=== PATIENT | male | born 1935 | race Caucasian/White ===

== ENCOUNTER 2021-12-13 05:55 | Emergency (ER) | payer MEDICARE ==
[~2021-12-13] VITALS: Ht 182.9 cm; Wt 99.8 kg
[2021-12-13] MEDS ORDERED: Simvastatin20 MG PO (06:26)
[2021-12-13] MEDS ORDERED: TAMSULOSIN HCL0.4 M1 PO (06:26)
[2021-12-13] MEDS ORDERED: FAMO10 PO (06:27)
[2021-12-13] MEDS ORDERED: EUTHYROX75 MC1 PO (06:27)
[2021-12-13] MEDS ORDERED: Cortef20 MG PO (06:27)
[2021-12-13] MEDS ORDERED: Keppra750 MG PO (06:27)
[2021-12-13] MEDS ORDERED: ASPI81CH PO (06:28)
== END 2021-12-13 09:49 | disposition home or self-care (01) ==
LOC: ER 05:55
DX: M25.511 Pain in right shoulder (principal); E03.9 Hypothyroidism, unspecified; F03.90 Unspecified dementia, unspecified severity, without behavioral disturbance, psychotic disturbance, mood disturbance, and anxiety; Z88.5 Allergy status to narcotic agent; Z88.0 Allergy status to penicillin; Z79.899 Other long term (current) drug therapy; Z79.82 Long term (current) use of aspirin; W01.0XXA Fall on same level from slipping, tripping and stumbling without subsequent striking against object, initial encounter
CPT/HCPCS: 73030; A9270

== ENCOUNTER 2022-04-12 15:25 | Emergency (ER) | payer MEDICARE ==
[~2022-04-12] VITALS: Ht 185.4 cm; Wt 81.7 kg
[~2022-04-12 15:25] MED LIST: ASPI81CH PO; ATORVASTATIN CA20 MG PO; AZIT500 PO; Cortef20 MG PO; EUTHYROX75 MC1 PO; FAMO10 PO; Keppra750 MG PO; Simvastatin20 MG PO; TAMSULOSIN HCL0.4 M1 PO
== END 2022-04-12 19:34 | disposition home or self-care (01) ==
LOC: ER 15:25
DX: M25.551 Pain in right hip (principal); F03.90 Unspecified dementia, unspecified severity, without behavioral disturbance, psychotic disturbance, mood disturbance, and anxiety; E03.9 Hypothyroidism, unspecified; I10 Essential (primary) hypertension; E11.9 Type 2 diabetes mellitus without complications; Z79.4 Long term (current) use of insulin; Z98.890 Other specified postprocedural states; Z88.0 Allergy status to penicillin; Z88.5 Allergy status to narcotic agent; Z79.899 Other long term (current) drug therapy; Z79.82 Long term (current) use of aspirin
CPT/HCPCS: 73502

== ENCOUNTER 2022-04-17 13:54 | Emergency (ER) | payer MEDICARE ==
[~2022-04-17] VITALS: Ht 180.3 cm; Wt 109.8 kg
== END 2022-04-17 18:05 | disposition home or self-care (01) ==
LOC: ER 13:54
DX: S51.801A Unspecified open wound of right forearm, initial encounter (principal); I10 Essential (primary) hypertension; E11.9 Type 2 diabetes mellitus without complications; E78.00 Pure hypercholesterolemia, unspecified; Z88.0 Allergy status to penicillin; Z88.5 Allergy status to narcotic agent; Z79.899 Other long term (current) drug therapy; Z79.82 Long term (current) use of aspirin; Z86.73 Personal history of transient ischemic attack (TIA), and cerebral infarction without residual deficits; Z23 Encounter for immunization; X58.XXXA Exposure to other specified factors, initial encounter
CPT/HCPCS: 90714